=== PATIENT | female | born 1990 | race Caucasian/White ===

== ENCOUNTER 2022-06-23 03:07 | Inpatient (IN) | payer MEDICAID ==
[2022-06-23] MEDS ORDERED: Scopolamine 1.5 MG Transdermal Patch TOP ONE (06:00)
[2022-06-23] MEDS ORDERED: Celecoxib 200 MG Cap PO ONE ×2 (06:00→06:30)
[2022-06-23] MEDS ORDERED: Acetaminophen 500 MG Tab PO ONE ×2 (06:00→06:30)
[2022-06-23] MEDS ORDERED: Scopolamine 1.5 MG Transdermal Patch TOP SCH (06:30)
[2022-06-23] MEDS ORDERED: cefOXitin 2 GM Vial ONE (06:51)
[2022-06-23 06:55] LABS: ESTIMATED GFR 88 mL/min (>60)
[2022-06-23] MEDS ORDERED: Albuterol/Ipratropium 3.0-0.5 MG/3 ML Neb Soln NEB ONE ×2 (07:00→07:15)
[2022-06-23] MEDS ORDERED: cefOXitin 2 GM in Sodium Chloride 0.9% 50 ML IV ONE ×2 (07:15→07:30)
[2022-06-23] MEDS ORDERED: Dextrose 5%-Lactated Ringers 1,000 ML IV SCH ×2 (07:45→11:15)
[2022-06-23] MEDS ORDERED: Ketamine 14 MG in Sodium Chloride 0.9% 19.86 ML IV SCH (08:00)
[2022-06-23] MEDS ORDERED: Ketamine 500 MG/5 ML MDV IV SCH (08:00)
[2022-06-23] MEDS ORDERED: Labetalol 20 MG/4 ML Syringe ONE (08:28)
[2022-06-23] MEDS ORDERED: fentaNYL 100 MCG/2 ML SDV ONE (09:19)
[2022-06-23] MEDS ORDERED: Neostigmine Methylsulfate 1 MG/ML 5 ML Syringe ONE (09:19)
[2022-06-23] MEDS ORDERED: Ondansetron 4 MG/2 ML SDV ONE (09:19)
[2022-06-23] MEDS ORDERED: Propofol 200 MG/20 ML SDV ONE (09:19)
[2022-06-23] MEDS ORDERED: Dexamethasone 4 MG/ML SDV ONE (09:19)
[2022-06-23] MEDS ORDERED: Succinylcholine 200 MG/10 ML MDV ONE (09:19)
[2022-06-23] MEDS ORDERED: Glycopyrrolate 0.2 MG/ML 5 ML MDV ONE (09:19)
[2022-06-23] MEDS ORDERED: Rocuronium 50 MG/5 ML Vial ONE (09:19)
[2022-06-23] MEDS ORDERED: hydrOXYzine HCL 100 MG/2 ML SDV IM ONE (10:08)
[2022-06-23] MEDS ORDERED: Cyclobenzaprine 10 MG Tab PO PRN (11:01)
[2022-06-23] MEDS ORDERED: traMADol 50 MG Tab PO PRN (11:20)
[2022-06-23] MEDS ORDERED: diphenhydrAMINE 50 MG/ML SDV IVPUSH PRN (11:20)
[2022-06-23] MEDS ORDERED: Acetaminophen 500 MG Tab PO PRN (11:20)
[2022-06-23] MEDS ORDERED: HYDROmorphone 1 MG/ML Syringe IV PRN (11:20)
[2022-06-23] MEDS ORDERED: Labetalol 20 MG/4 ML Syringe IVPUSH PRN (11:20)
[2022-06-23] MEDS ORDERED: Albuterol/Ipratropium 3.0-0.5 MG/3 ML Neb Soln INH PRN (11:20)
[2022-06-23] MEDS: HYDROmorphone 0.5 MG/0.5 ML Syringe IVPUSH PRN ×2 (11:52→19:18)
[2022-06-23] MEDS: hydrOXYzine HCL 100 MG/2 ML SDV IM PRN ×2 (13:07→17:14)
[2022-06-23] MEDS: Acetaminophen 500 MG Tab PO SCH ×2 (13:37→21:34)
[2022-06-23] MEDS: cefOXitin 2 GM in Sodium Chloride 0.9% 50 ML IV SCH ×2 (13:39→20:32)
[2022-06-23] MEDS: Pantoprazole 40 MG Vial IVPUSH SCH (13:39)
[2022-06-23] MEDS: Albuterol/Ipratropium 3.0-0.5 MG/3 ML Neb Soln INH SCH ×2 (14:15→20:32)
[2022-06-23] MEDS: Ondansetron 4 MG/2 ML SDV IVPUSH PRN ×2 (14:38→19:18)
[2022-06-23] MEDS: oxyCODONE 5 MG Tab PO PRN (15:37)
[2022-06-23] MEDS: Metoclopramide 10 MG/2 ML SDV IVPUSH PRN ×2 (16:07→23:15)
[2022-06-23] MEDS: MVI, Adult with Vitamin K 10 ML, Thiamine 200 MG, Zinc/Copper/Manganese/Selenium 1 ML i... IV SCH ×4 (17:00)
[2022-06-23] MEDS: Heparin Sodium 5,000 Units/ML Vial SUBCUT SCH (20:32)
[2022-06-23] MEDS: LORazepam 2 MG/ML SDV IVPUSH PRN (21:44)
[2022-06-24] MEDS: Ondansetron 4 MG/2 ML SDV IVPUSH PRN ×3 (00:53→20:54)
[2022-06-24] MEDS: hydrOXYzine HCL 100 MG/2 ML SDV IM PRN (01:00)
[2022-06-24] MEDS: cefOXitin 2 GM in Sodium Chloride 0.9% 50 ML IV SCH ×4 (02:03→19:30)
[2022-06-24] MEDS ORDERED: Iopamidol 612 MG/ML 50 ML SDV PO ONE (02:25)
[2022-06-24] MEDS: LORazepam 2 MG/ML SDV IVPUSH PRN ×2 (02:55→13:13)
[2022-06-24] MEDS: Acetaminophen 500 MG Tab PO SCH ×3 (05:57→21:04)
[2022-06-24] MEDS: Albuterol/Ipratropium 3.0-0.5 MG/3 ML Neb Soln INH SCH ×4 (07:07→21:04)
[2022-06-24] MEDS: Metoclopramide 10 MG/2 ML SDV IVPUSH PRN (09:03)
[2022-06-24] MEDS: SCOPOLAMINE PATCH CHECK TOP SCH (09:03)
[2022-06-24] MEDS: Celecoxib 200 MG Cap PO SCH ×2 (09:03→21:04)
[2022-06-24] MEDS: Heparin Sodium 5,000 Units/ML Vial SUBCUT SCH ×2 (09:03→19:30)
[2022-06-24] MEDS ORDERED: Pantoprazole 40 MG Delayed-Release Granules 1 Packet PO SCH (11:30)
[2022-06-24] MEDS: methylPREDNISolone Sodium Succinate 125 MG/2 ML SDV IVPUSH SCH ×2 (11:52→23:56)
[2022-06-24] MEDS: Dextrose 5%-Lactated Ringers 1,000 ML IV SCH (11:53)
[2022-06-24] MEDS: Pantoprazole 40 MG Vial IVPUSH SCH (15:44)
[2022-06-24] MEDS: MVI, Adult with Vitamin K 10 ML, Thiamine 200 MG, Zinc/Copper/Manganese/Selenium 1 ML i... IV SCH ×4 (15:47)
[2022-06-24] MEDS: oxyCODONE 5 MG Tab PO PRN (15:54)
[2022-06-25] MEDS: Dextrose 5%-Lactated Ringers 1,000 ML IV SCH ×2 (03:03→13:09)
[2022-06-25] MEDS: Acetaminophen 500 MG Tab PO SCH ×3 (05:22→21:42)
[2022-06-25] MEDS: Albuterol/Ipratropium 3.0-0.5 MG/3 ML Neb Soln INH SCH ×4 (07:33→20:35)
[2022-06-25] MEDS ORDERED: Cyanocobalamin (Vitamin B12) 1,000 MCG/ML SDV IM ONE (09:00)
[2022-06-25] MEDS: Heparin Sodium 5,000 Units/ML Vial SUBCUT SCH ×2 (09:06→20:32)
[2022-06-25] MEDS: Celecoxib 200 MG Cap PO SCH ×2 (09:06→20:32)
[2022-06-25] MEDS: SCOPOLAMINE PATCH CHECK TOP SCH (09:07)
[2022-06-25] MEDS: methylPREDNISolone Sodium Succinate 125 MG/2 ML SDV IVPUSH SCH (10:45)
[2022-06-25] MEDS: Pantoprazole 40 MG Vial IVPUSH SCH (13:09)
[2022-06-25] MEDS ORDERED: Ondansetron 4 MG Tab.DIS PO PRN (13:42)
[2022-06-25] MEDS ORDERED: Pantoprazole 40 MG Delayed-Release Granules 1 Packet PO SCH (14:00)
[2022-07-21 08:53] LABS: ESTIMATED GFR 88 mL/min (>60)
== END 2022-06-26 15:50 | disposition home or self-care (01) | DRG 621 ==
LOC: JP.SDS 06:08 → JP.MS 06:08 → EDSTATUS 07:15 → JP.MS 10:42 → JP.ZCENSUS 06-26 11:48
PROVIDERS: ADMIT Surgery; ATTEND Surgery
PROC: 0D164ZA Bypass Stomach to Jejunum, Percutaneous Endoscopic Approach (ICD-10-PCS; principal; 2022-06-23)
PROC: 0FB24ZX Excision of Left Lobe Liver, Percutaneous Endoscopic Approach, Diagnostic (ICD-10-PCS; 2022-06-23)
PROC: 0BQT4ZZ Repair Diaphragm, Percutaneous Endoscopic Approach (ICD-10-PCS; 2022-06-23)
DX: E66.01 Morbid (severe) obesity due to excess calories (principal); Z68.42 Body mass index [BMI] 45.0-49.9, adult; K44.9 Diaphragmatic hernia without obstruction or gangrene; R16.0 Hepatomegaly, not elsewhere classified
CPT/HCPCS: 36415; 74240; 74240-26; 80053; 83735; 84100; 84145; 84703; 85025; 86140; 86850; 86900; 86901; 88307; 88313; 94640; A9270-GY; C9113; J0171; J0330; J0694; J1100; J1170; J1644; J2060; J2405; J2704; J2710; J2765; J2795; J2930; J3010; J3410; J3411; J3420; J3490; J7121; J7620; Q9967; U0002